=== PATIENT | female | born 1960 | race Native Hawaiian/Other Pacific Islander ===

== ENCOUNTER 2018-12-15 15:28 | Outpatient (CLI) | payer OTHER | END 2018-12-15 23:26 | disposition home or self-care (01) | LOC: RAD 15:28 | DX: J43.9 Emphysema, unspecified (principal) ==

== ENCOUNTER 2018-12-21 18:17 | Emergency (ER) | payer OTHER ==
[~2018-12-21] VITALS: Ht 170.2 cm; Wt 97.5 kg
[2018-12-21 18:17] VITALS: BP 182/98; TEMP 98
[2018-12-21 19:07] LABS: PLATELET COUNT 260 K/uL (152-353)
[2018-12-21 19:29] LABS: POTASSIUM 4.3 mmol/L (3.6-5.2)
[2018-12-21 20:06] LABS: PARTIAL THROMBOPLASTIN TIME 20.3 SECONDS (24.5-33.6)
== END 2018-12-21 19:20 | disposition short-term general hospital (02) ==
LOC: ED 18:21
PROVIDERS: Emergency Medicine
DX: I21.09 ST elevation (STEMI) myocardial infarction involving other coronary artery of anterior wall (principal); F17.210 Nicotine dependence, cigarettes, uncomplicated
CPT/HCPCS: 80053; 82550; 82553; 84484; 85027; 85610; 85730; 93005; 96374; 96375; 99285; J1644; J2270

== ENCOUNTER 2018-12-21 19:26 | Outpatient (CLI) | payer OTHER | END 2018-12-21 19:56 | disposition short-term general hospital (02) | LOC: AMB 19:26 | DX: R07.89 Other chest pain (principal); M79.602 Pain in left arm; M54.89 Other dorsalgia | CPT/HCPCS: A0425; A0429 ==

== ENCOUNTER 2019-02-02 13:31 | Outpatient (CLI) | payer OTHER | END 2019-02-02 23:20 | disposition home or self-care (01) | LOC: MAMMO 13:31 | DX: Z12.31 Encounter for screening mammogram for malignant neoplasm of breast (principal) ==

== ENCOUNTER 2019-09-21 14:41 | Outpatient (CLI) | payer OTHER | END 2019-09-21 19:10 | disposition home or self-care (01) | LOC: RAD 14:41 | DX: R06.02 Shortness of breath (principal) ==